=== PATIENT | male | born 1980 | race Caucasian/White ===

== ENCOUNTER 2017-03-03 13:08 | Emergency (ER) | payer OTHER ==
[~2017-03-03] VITALS: Ht 170.2 cm; Wt 80.9 kg
[~2017-03-03 13:08] MED LIST: ALPR0.25 PO; AMOX1TAB61 PO; CEFU500T PO; HYDR-3237 PO; HYDR-3240 PO; METR500T PO; PROM25TA10 PO
[2017-03-03 13:09] VITALS: BP 159/104
== END 2017-03-03 14:15 | disposition home or self-care (01) ==
LOC: ED 13:45
DX: S60.211A Contusion of right wrist, initial encounter (principal); W22.8XXA Striking against or struck by other objects, initial encounter; Y93.89 Activity, other specified; Y92.488 Other paved roadways as the place of occurrence of the external cause; Y99.8 Other external cause status
CPT/HCPCS: 99284